=== PATIENT | female | born 1990 | race Caucasian/White ===

== ENCOUNTER → 2021-04-19 | Day surgery (SDC) | payer OTHER ==
[~2021-04-19] MED LIST: BUSPIRONE HCL5 MG PO; HYDROCODON-ACE1 EAC2 PO; LISINOPRIL5 MG PO; PREDNISONE10 MG PO; VENLAFAXINE HCL75 MG PO; VITAMIN D21250 MCG PO; ZOFRAN4 MG PO
[2021-04-19 07:56] LABS: BUN/CREATININE RATIO 17 (0-10)
== END | disposition home or self-care (01) ==
LOC: OR 06:58
PROVIDERS: Podiatrist Foot & Ankle Surgery
DX: S82.851A Displaced trimalleolar fracture of right lower leg, initial encounter for closed fracture (principal); M25.371 Other instability, right ankle; I10 Essential (primary) hypertension; F41.9 Anxiety disorder, unspecified; F32.A Depression, unspecified; K21.9 Gastro-esophageal reflux disease without esophagitis; Z79.899 Other long term (current) drug therapy; X50.1XXA Overexertion from prolonged static or awkward postures, initial encounter
CPT/HCPCS: 73600; 76000; 80048; 84703; 93005; C1713; J0171; J0690; J1100; J1170; J1885; J2001; J2250; J2405; J2704; J2795; J3010; J3370; J7120

== ENCOUNTER → 2021-04-25 | Outpatient (CLI) | payer OTHER | LOC: KOH-I 14:17 | DX: S82.852D Displaced trimalleolar fracture of left lower leg, subsequent encounter for closed fracture with routine healing (principal); M25.572 Pain in left ankle and joints of left foot; X58.XXXD Exposure to other specified factors, subsequent encounter; Z98.890 Other specified postprocedural states | CPT/HCPCS: 73610 ==

== ENCOUNTER → 2021-05-23 | Outpatient (CLI) | payer OTHER | LOC: KOH-I 09:55 | DX: S82.851D Displaced trimalleolar fracture of right lower leg, subsequent encounter for closed fracture with routine healing (principal) | CPT/HCPCS: 73610 ==

== ENCOUNTER → 2021-06-06 | Outpatient (CLI) | payer OTHER | LOC: KOH-I 11:09 | DX: S82.851A Displaced trimalleolar fracture of right lower leg, initial encounter for closed fracture (principal) | CPT/HCPCS: 73610 ==

== ENCOUNTER → 2021-07-02 | Outpatient (CLI) | payer OTHER | LOC: KOH-I 10:14 | DX: S82.851D Displaced trimalleolar fracture of right lower leg, subsequent encounter for closed fracture with routine healing (principal) | CPT/HCPCS: 73610 ==

== ENCOUNTER → 2021-08-01 | Outpatient (CLI) | payer OTHER | LOC: KOH-I 10:06 | DX: S82.851D Displaced trimalleolar fracture of right lower leg, subsequent encounter for closed fracture with routine healing (principal); M79.89 Other specified soft tissue disorders | CPT/HCPCS: 73610 ==

== ENCOUNTER → 2021-09-16 | Outpatient (CLI) | payer OTHER | LOC: KOH-I 10:47 | DX: S82.851A Displaced trimalleolar fracture of right lower leg, initial encounter for closed fracture (principal); X58.XXXA Exposure to other specified factors, initial encounter | CPT/HCPCS: 73610 ==

== ENCOUNTER → 2022-01-28 | Outpatient (CLI) | payer OTHER | LOC: KOH-I 15:48 | DX: S82.851D Displaced trimalleolar fracture of right lower leg, subsequent encounter for closed fracture with routine healing (principal) | CPT/HCPCS: 73610 ==